=== PATIENT | female | born 1970 | race African-American/Black ===

== ENCOUNTER 2016-12-06 09:34 | Emergency (ER) | payer OTHER, MEDICAID ==
[2016-12-06 09:45] VITALS: BP 190/114
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
== END 2016-12-06 11:05 | disposition home or self-care (01) ==
LOC: ER 09:34
DX: S16.1XXA Strain of muscle, fascia and tendon at neck level, initial encounter (principal); S39.012A Strain of muscle, fascia and tendon of lower back, initial encounter; R52 Pain, unspecified; V87.7XXA Person injured in collision between other specified motor vehicles (traffic), initial encounter; I48.91 Unspecified atrial fibrillation; I10 Essential (primary) hypertension
CPT/HCPCS: 99283

== ENCOUNTER 2017-04-05 17:29 | Emergency (ER) | payer OTHER, MEDICAID ==
[2017-04-05] MEDS ORDERED: ACETAMINOPHEN 325 MG TABLET PO ONE (20:40)
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
[2017-04-05] MEDS ORDERED: HYDROCODONE/ACETAMINOPHEN 5-325 MG 6 TAB/DSPK PO PRN (22:27)
[2017-04-05 22:39] VITALS: BP 146/95
== END 2017-04-05 22:48 | disposition home or self-care (01) ==
LOC: ER 17:29
DX: S16.1XXA Strain of muscle, fascia and tendon at neck level, initial encounter (principal); M54.5 Low back pain; Z98.84 Bariatric surgery status; I10 Essential (primary) hypertension; V89.2XXA Person injured in unspecified motor-vehicle accident, traffic, initial encounter
CPT/HCPCS: 72070; 72110; 99284

== ENCOUNTER 2017-12-16 14:02 | Emergency (ER) | payer OTHER ==
[2017-12-16] MEDS ORDERED: ACETAMINOPHEN 325 MG TABLET PO ONE (15:57)
[2017-12-16] MEDS ORDERED: CYCLOBENZAPRINE HCL 10 MG TABLET PO ONE (15:57)
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
[2017-12-16 17:46] VITALS: BP 169/99
== END 2017-12-16 17:46 | disposition home or self-care (01) ==
LOC: ER 14:02
DX: R10.30 Lower abdominal pain, unspecified (principal); M54.2 Cervicalgia; M54.5 Low back pain; R10.813 Right lower quadrant abdominal tenderness; R10.814 Left lower quadrant abdominal tenderness; V49.40XA Driver injured in collision with unspecified motor vehicles in traffic accident, initial encounter; I10 Essential (primary) hypertension; J45.909 Unspecified asthma, uncomplicated; Z98.84 Bariatric surgery status
CPT/HCPCS: 71046; 72110; 74176; 99284